=== PATIENT | female | born 1975 | race Caucasian/White ===

== ENCOUNTER 2017-11-02 17:20 | Emergency (ER) | payer SELFPAY ==
[~2017-11-02] VITALS: Ht 172.7 cm; Wt 80.5 kg
[2017-11-02 18:03] VITALS: BP 132/92; Ht 172.7 cm; Wt 80.5 kg
== END 2017-11-02 18:35 | disposition left against medical advice (07) ==
LOC: ED 17:20
DX: Z53.21 Procedure and treatment not carried out due to patient leaving prior to being seen by health care provider (principal)

== ENCOUNTER 2017-11-04 15:07 | Emergency (ER) | payer SELFPAY ==
[~2017-11-04] VITALS: Ht 172.7 cm; Wt 80.3 kg
[2017-11-04 15:12] VITALS: Ht 172.7 cm; Wt 80.3 kg
[2017-11-04 15:55] VITALS: BP 112/68
== END 2017-11-04 15:55 | disposition home or self-care (01) ==
LOC: ED 15:07
DX: Z02.1 Encounter for pre-employment examination (principal); J32.9 Chronic sinusitis, unspecified; Z88.8 Allergy status to other drugs, medicaments and biological substances